=== PATIENT | female | born 1965 | race Caucasian/White ===

== ENCOUNTER 2017-06-27 23:48 | Emergency (ER) | payer OTHER ==
[~2017-06-27] VITALS: Ht 157.5 cm; Wt 70.3 kg
[~2017-06-27 23:48] MED LIST: ALBU90OI61 INH; ALPR.5 PO; ASPI325 PO; ASPI81CH PO; BUDE10.22; BUDE6HFA INH; CALC1.25T PO; CETI5 PO; CITA20 PO; CLOP75 PO; CO Q PO; COMBIVENT RESPIM4 GM INH; Crestor20 MG PO; ERGO50000 PO; ISOMON20; ISOSORBIDE MONONITRATE 30 MG; LISI5 PO; LOVA40 PO; MAGOXI400 PO; METO25 PO; Norco 5-325 Ta1 EACH PO; Omeprazole20 M1; TOBR.3OPO LEFTEYE; TRAM50 PO; TRAZ50 PO; Zofran Odt4 MG SL
[2017-06-28] MEDS ORDERED: Mobic7.5 MG PO (00:15)
[2017-06-28 01:05] LABS: BASOPHILS ABSOLUTE AUTO 0.05 K/mm3 (0.00-0.23); BASOPHILS PERCENT AUTO 1 % (0-2); EOSINOPHILS ABSOLUTE AUTO 0.13 K/mm3 (0.00-0.68); EOSINOPHILS PERCENT AUTO 1 % (0-6); Hematocrit 39.7 % (33.0-51.0); Hemoglobin 12.6 g/dL (11.5-16.0); IMMATURE GRAN ABSOLUTE AUTO 0.03 K/mm3 (0.00-0.10); IMMATURE GRAN PERCENT AUTO 0 % (0-1); LYMPHOCYTES ABSOLUTE AUTO 4.22 K/mm3 (0.84-5.20); LYMPHOCYTES PERCENT AUTO 45 % (21-46); MONOCYTES ABSOLUTE AUTO 0.48 K/mm3 (0.16-1.47); MONOCYTES PERCENT AUTO 5 % (4-13); Mean Corpuscular HGB 29.4 pg (26.0-34.0); Mean Corpuscular HGB Conc 31.7 g/dL (31.5-36.5); Mean Corpuscular Volume 93 fL (80-100); Mean Platelet Volume 9.7 fL (9.1-12.4); NEUTROPHILS ABSOLUTE AUTO 4.47 K/mm3 (1.96-9.15); NEUTROPHILS PERCENT AUTO 48 % (41-73); Platelet Count 210 K/mm3 (150-400); RDW Coefficient Variation 14.7 % (11.7-14.2); RDW Standard Deviation 50.4 fL (35.1-46.3); Red Blood Cell Count 4.29 M/mm3 (3.80-5.20); White Blood Cell Count 9.38 K/mm3 (4.00-11.30)
[2017-06-28 01:20] LABS: Alanine Aminotransfer (ALT/SGP 26 U/L (12-78); Albumin, Blood 3.3 g/dL (3.4-5.0); Albumin/Globulin Ratio 0.9 (0.8-1.8); Alk Phos 55 U/L (50-136); Anion Gap 9 mmol/L (6-16); Aspartate Aminotrans (AST/SGOT 22 U/L (12-37); Bilirubin, Total 0.1 mg/dL (0.1-1.0); Blood Urea Nitrogen 19 mg/dL (8-24); Bun/Creatinine Ratio 27.3 (12.0-20.0); CO2, Blood 26 mmol/L (21-32); Calcium, Blood 8.5 mg/dL (8.5-10.1); Chloride, Blood 107 mmol/L (98-108); Globulin, Blood 3.7 g/dL (2.2-4.0); Glomerular Filtration Rate >60 (60-); Glucose, Blood 80 mg/dL (70-99); Potassium, Blood 3.8 mmol/L (3.5-5.5); Sodium, Blood 142 mmol/L (136-145); Troponin I <0.015 ng/mL (0.000-0.040)
== END 2017-06-28 05:30 | disposition home or self-care (01) ==
LOC: ER 23:48
PROVIDERS: Emergency Medicine
DX: R07.89 Other chest pain (principal); F41.9 Anxiety disorder, unspecified; J44.9 Chronic obstructive pulmonary disease, unspecified; I25.10 Atherosclerotic heart disease of native coronary artery without angina pectoris; I25.2 Old myocardial infarction; Z88.1 Allergy status to other antibiotic agents; Z79.899 Other long term (current) drug therapy; Z79.82 Long term (current) use of aspirin; Z95.5 Presence of coronary angioplasty implant and graft; Z90.710 Acquired absence of both cervix and uterus; Z87.891 Personal history of nicotine dependence; Z90.49 Acquired absence of other specified parts of digestive tract
CPT/HCPCS: 36415; 71046; 80053; 84484; 85025; 93005; 93010; 99283

== ENCOUNTER 2017-07-26 07:07 | Day surgery (SDC) | payer OTHER ==
[~2017-07-26] VITALS: Ht 157.5 cm; Wt 73.3 kg
[~2017-07-26 07:07] MED LIST changes: +Mobic7.5 MG PO
[2017-07-26] MEDS ORDERED: LOSA50 PO (07:35)
== END 2017-07-26 09:10 | disposition home or self-care (01) ==
LOC: ORSCSDS 07:07
PROVIDERS: Surgery
PROC: 0DJD8ZZ Inspection of Lower Intestinal Tract, Via Natural or Artificial Opening Endoscopic (ICD-10-PCS; principal; 2017-07-26 08:15)
DX: Z12.11 Encounter for screening for malignant neoplasm of colon (principal); F17.210 Nicotine dependence, cigarettes, uncomplicated; J44.9 Chronic obstructive pulmonary disease, unspecified; Z79.82 Long term (current) use of aspirin; Z79.899 Other long term (current) drug therapy
CPT/HCPCS: J0330; J1980; J2405; J7120

== ENCOUNTER 2018-06-26 13:48 | Inpatient (IN) | payer OTHER, MEDICARE ==
[~2018-06-26] VITALS: Ht 160 cm; Wt 83.2 kg
[~2018-06-26 13:48] MED LIST changes: -CITA20 PO; +Citalopram HBr40 MG PO; +LOSA50 PO
[2018-06-26 14:43] LABS: BASOPHILS ABSOLUTE AUTO 0.05 K/mm3 (0.00-0.23); BASOPHILS PERCENT AUTO 1 % (0-2); EOSINOPHILS ABSOLUTE AUTO 0.07 K/mm3 (0.00-0.68); EOSINOPHILS PERCENT AUTO 1 % (0-6); Hematocrit 46.3 % (33.0-51.0); Hemoglobin 15.1 g/dL (11.5-16.0); IMMATURE GRAN ABSOLUTE AUTO 0.03 K/mm3 (0.00-0.10); IMMATURE GRAN PERCENT AUTO 0 % (0-1); LYMPHOCYTES ABSOLUTE AUTO 2.97 K/mm3 (0.84-5.20); LYMPHOCYTES PERCENT AUTO 39 % (21-46); MONOCYTES ABSOLUTE AUTO 0.39 K/mm3 (0.16-1.47); MONOCYTES PERCENT AUTO 5 % (4-13); Mean Corpuscular HGB 29.5 pg (26.0-34.0); Mean Corpuscular HGB Conc 32.6 g/dL (31.5-36.5); Mean Corpuscular Volume 91 fL (80-100); Mean Platelet Volume 9.4 fL (9.1-12.4); NEUTROPHILS ABSOLUTE AUTO 4.03 K/mm3 (1.96-9.15); NEUTROPHILS PERCENT AUTO 53 % (41-73); Platelet Count 256 K/mm3 (150-400); RDW Coefficient Variation 13.7 % (11.7-14.2); RDW Standard Deviation 45.9 fL (35.1-46.3); Red Blood Cell Count 5.11 M/mm3 (3.80-5.20); White Blood Cell Count 7.54 K/mm3 (4.00-11.30)
[2018-06-26 15:07] LABS: Alanine Aminotransfer (ALT/SGP 19 U/L (12-78); Albumin, Blood 4.1 g/dL (3.4-5.0); Alk Phos 76 U/L (50-136); Anion Gap 7 mmol/L (6-16); Aspartate Aminotrans (AST/SGOT 16 U/L (12-37); Bilirubin, Total 0.4 mg/dL (0.1-1.0); Blood Urea Nitrogen 11 mg/dL (8-24); Bun/Creatinine Ratio 14.2 (12.0-20.0); CO2, Blood 26 mmol/L (21-32); Chloride, Blood 109 mmol/L (98-108); Creatinine, Blood 0.77 mg/dL (0.40-1.00); Globulin, Blood 4.1 g/dL (2.2-4.0); Glomerular Filtration Rate >60 (60-); Glucose, Blood 84 mg/dL (70-99); Potassium, Blood 4.2 mmol/L (3.5-5.5); Sodium, Blood 142 mmol/L (136-145); Total Protein, Blood 8.2 g/dL (6.4-8.2); Troponin I <0.015 ng/mL (0.000-0.040)
[2018-06-26 17:42] LABS: Prothrombin Time Results 10.6 Sec (9.7-11.5)
[2018-06-26] MEDS ORDERED: ALBU90OI INH (17:56)
[2018-06-26] MEDS ORDERED: Estrace Vagin42.5 GM VAG (18:43)
[2018-06-26] MEDS ORDERED: COMBIVENT RESPIM4 GM INH (18:48)
[2018-06-27 05:15] LABS: CHOL/HDL RATIO 3.5; Cholesterol 168 mg/dL (50-200); HDL Cholesterol 48 mg/dL (>39); LDL/HDL RATIO 2.1; Low Density Lipoprotein Chol 100 mg/dL (0-110); Triglycerides 102 mg/dL (30-160); Very Low Density Lipoprot Chol 20 mg/dL (6-32)
--- NOTE | 2018-06-27 06:28 | NUR ---
SHIFT SUMMARY: PT NEW ED ADMIT TO FLOOR THIS SHIFT. PT IS A&O X 4, INDEPENDENT IN ROOM. NO CHEST PAIN SINCE ARRIVING TO FLOOR. TELE IN PLACE; NSR @ 88 BPM. LS CLEAR, RESP E/U ON RA. NEG TROPONINS. CHEST X RAY WNL. PT HAS HX OF STEMI IN 2016, ANXIETY, DEPRESSION, AND COPD. TRAMADOL ADMINISTERED 1X FOR NECK/BACK PAIN. WILL CONT TO MONITOR AND PROVIDE CARE UNTIL PRESUMED BY ONCOMING RN.
--- NOTE | 2018-06-27 07:20 | NUR ---
CHEST PAIN PT REPORTING CHEST PAIN 3/10, STATES IT IS "DISCOMFORT" AT THIS POINT AND WILL WAIT TO SEE IF IT RESOLVES. VS TAKEN, PT IS RESTING AND WILL CALL IS CP WORSENS.
--- NOTE | 2018-06-27 17:25 | NUR ---
SHIFT SUMMARY PT HAS HAD NO ACUTE CHANGES THIS SHIFT, PT REPORTED CP THIS AM (07/23), WAS REPORTED TO DR KANG. PT IS BEDRESTING AT THIS TIME W/VISITOR AT BEDSIDE, WILL CONT TO MONITOR UNTIL REPORT GIVEN TO KEVON RN.
[2018-06-28 04:59] LABS: BASOPHILS ABSOLUTE AUTO 0.05 K/mm3 (0.00-0.23); BASOPHILS PERCENT AUTO 1 % (0-2); EOSINOPHILS PERCENT AUTO 2 % (0-6); Hematocrit 39.9 % (33.0-51.0); Hemoglobin 12.5 g/dL (11.5-16.0); IMMATURE GRAN ABSOLUTE AUTO 0.02 K/mm3 (0.00-0.10); IMMATURE GRAN PERCENT AUTO 0 % (0-1); LYMPHOCYTES ABSOLUTE AUTO 3.43 K/mm3 (0.84-5.20); LYMPHOCYTES PERCENT AUTO 54 % (21-46); MONOCYTES ABSOLUTE AUTO 0.32 K/mm3 (0.16-1.47); MONOCYTES PERCENT AUTO 5 % (4-13); Mean Corpuscular HGB 29.3 pg (26.0-34.0); Mean Corpuscular HGB Conc 31.3 g/dL (31.5-36.5); Mean Platelet Volume 9.2 fL (9.1-12.4); NEUTROPHILS ABSOLUTE AUTO 2.48 K/mm3 (1.96-9.15); NEUTROPHILS PERCENT AUTO 39 % (41-73); Platelet Count 219 K/mm3 (150-400); RDW Coefficient Variation 13.8 % (11.7-14.2); RDW Standard Deviation 47.3 fL (35.1-46.3); Red Blood Cell Count 4.26 M/mm3 (3.80-5.20)
[2018-06-28 05:04] LABS: Mean Corpuscular Volume 94 fL (80-100)
[2018-06-28 05:17] LABS: Very Low Density Lipoprot Chol 15 mg/dL (6-32)
[2018-06-28 05:18] LABS: Anion Gap 5 mmol/L (6-16); Blood Urea Nitrogen 17 mg/dL (8-24); CHOL/HDL RATIO 3.3; CO2, Blood 29 mmol/L (21-32); Calcium, Blood 8.2 mg/dL (8.5-10.1); Chloride, Blood 107 mmol/L (98-108); Cholesterol 159 mg/dL (50-200); Creatinine, Blood 0.77 mg/dL (0.40-1.00); Glomerular Filtration Rate >60 (60-); Glucose, Blood 91 mg/dL (70-99); HDL Cholesterol 48 mg/dL (>39); Low Density Lipoprotein Chol 96 mg/dL (0-110); Potassium, Blood 4.1 mmol/L (3.5-5.5); Sodium, Blood 141 mmol/L (136-145); Triglycerides 76 mg/dL (30-160)
--- NOTE | 2018-06-28 06:48 | NUR ---
SHIFT SUMMARY PT IS A 52 Y/O FEMALE, ADMITTED FOR CHEST PAIN. SHE IS A&O X 4, AND INDEPENDENT IN THE ROOM. SHE HAS DENIED ANY CHEST PAIN DURING THE NIGHT, WELL ANY SOB OR NAUSEA. PT WAS MADE NPO AT MIDNIGHT IN PREP FOR A STRESS TEST THIS AM. VITAL SIGNS REMAINED STABLE. PT SLEPT WELL THROUGH THE NIGHT. NO OTHER ACUTE CHANGES IN PT CONDITION NOTED. WILL CONTINUE TO MONITOR AND TREAT PER EMAR.
--- NOTE | 2018-06-28 17:29 | NUR ---
SHIFT SUMMARY PT HAS HAD NO ACUTE CHANGES THIS SHIFT, NO CP, PT WILL BE NPO AT MIDNIGHT FOR ANGIO 06/29, PT IS AWARE. PT IS BEDRESTING AT THIS TIME, WILL CONT TO MONITOR UNTIL REPORT GIVEN TO NOC RN.
--- NOTE | 2018-06-29 06:28 | NUR ---
SHIFT SUMMARY: PT A&O X 4, INDEPEDENT. GOING OUTSIDE TO SMOKER REGARDLESS OF SMOKING CESSATION EDUCATION AND OFFERING OF NICOTINE PATCH. PT HAS NOT HAD ANY CHEST PAIN THIS SHIFT. NPO AT MIDNIGHT FOR IMPENDING ANGIO TODAY. PT FAILED STRESS TEST PERFORMED ON 06/28. TELE IN PLACE; NSR @ 76 BPM PER STORE CLERK CHECKER. NO OTHER CHANGES TO REPORT. WILL CONT TO MONITOR AND PROVIDE CARE UNTIL PRESUMED BY ONCOMING RN.
--- NOTE | 2018-06-29 11:36 | NUR ---
PT TO [facility] FITTER FOR ANGIO
--- NOTE | 2018-06-29 18:23 | NUR ---
NURSING PCU TRANSFER SUMMARY: Assumed care of pt at approx 1410. Arrived from HC via bed accompanied by HC staff x2. VSS, no c/o CP/pressure. R radial site w/TR band and wrist board in place. Site stable w/no bleed or hematoma noted. At approx 1700, pt began to c/o 6/10 epigastric/midsternal CP/burning. VS completed, noted hypertension of 210/129, f/u BP of 192/116. Software Engineering Analyst notified, new d/o received for nitro and hep gtt's, pt changed to ICU status. ICU bed assignment received, telephone report provided to accepting RN. Pt xferred to ICU via bed at approx 1750, no s/s of increased distress at that time. Pt and accepting RN denied any questions, xfer of care completed.
--- NOTE | 2018-06-29 19:15 | NUR ---
ASSUMING CARE OF PT AT THIS TIME. PT REPORT RECEIVED AT BEDSIDE WITH OFFGOING NURSE, DANIELLE ALEXANDRE. PT LAYING IN BED, AWAKE UPON ENTERING THE ROOM. PT HYPERTENSTIVE - WILL TITRATE NITRO DRIP TO EFFECT. OTHERWISE, VS STABLE - SEE VS FS. PT DOES NOT APPEAR TO BE IN DISTRESS AT THIS TIME. WILL REVIEW PLAN OF CARE.
--- NOTE | 2018-06-29 19:20 | NUR ---
Patient transferred from PCU 12 and went to use bathroom prior to gett ing in ICU bed 1. Recieved brief report from Keila ALEXANDRE. Patient on RA and systolic 180 and HR 50's. Started Heparin at 15 units/kg/hr with adjusted weight of 65Kg. Also started Nitro gtt at 5mcg which has been increased to 15mcg for systolic 170 and slow decreaseing. Took patient for CTA and when got back did EKG. Started 18ga IV RFA and heparin infusing and she has 20ga IV LFA infusing Nitro gtt. Deflated TR band over 30 minutes and TR Band still in place and Raquel RN will remove.. Gave report to Raquel ALEXANDRE.
--- NOTE | 2018-06-29 19:30 | NUR ---
ASSESSMENT PT CALM, QUIET, COOPERATIVE, RESPONDS TO VERBAL STIMULI, SPONT OPENS EYES, A&O X4, TALKS AND ANSWERS QUESTIONS APPROPRIATELY. SENSATION INTACT. DENIES N/T. PT AVENDANO. NO WEAKNESS NOTED. PT TURNS SELF IN BED. 1P SBA TO ASSIST WITH LINES/CORDS/TUBES TO AMBULATE PT. PT C/O 4/10 PAIN IN "RIBS" AND "UPPER CHEST". WILL ADMINISTER SCHEDULED ULTRAM PER PHYSICIAN'S ORDER. LUNGS CLEAR. PT ON RA. OXY SAT >95%. RR 14. DENIES SOB. NO COUGHING. AFEBRILE. SB TO NSR. HR 50'S TO 60'S. BP STABLE WHILE ON NITRO DRIP 15 MCG/MIN. NITRO DRIP - WILL TITRATE TO EFFECT. HEPARIN DRIP AT 15 UNITS/KG/HR AT A DOSING WEIGHT 65 KG (19.5 ML/HR). VERIFIED NITRO DRIP AND HEPARIN DRIP WITH OFFGOING NURSE, DANIELLE ALEXANDRE. TR BAND TO R RADIAL WITH ARMBOARD IN PLACE. PER REPORT - TR BAND IS COMPLETELY DEFLATED. R RADIAL SITE - SMALL AMOUNTS OF DRY SEROSANGEOUS FLUID, NO HEMATOMA, NO TENDERNESS, NO BLEEDING, NO BRUISING, NO REDNESS. ACTIVE BT X4 QUADRANTS. ABD SOFT, NONTENDER, MILD DIST (PT STATES DIST IS NORMAL). NO N/V. NO BM AT THIS TIME. PT HAS BEDSIDE COMMODE PRIVELEGES WITH AMBULATION ASSISTANCE. CLEAR, YELLOW URINE NOTED. PIV X2.
--- NOTE | 2018-06-29 21:15 | NUR ---
TR BAND / DR. POLANCO TR BAND TO RADIAL. R RADIAL SITE - SMALL AMOUNTS OF DRY SEROSANGEOUS FLUID, NO HEMATOMA, NO TENDERNESS, NO BLEDING, NO BRUISING, NO REDNESS. TR BAND REMOVED. CLEANED R RADIAL SITE WITH CHLORHEXIDIE. TRANSPARENT DRESSING PLACED. DRESSING C/D/I. R ARMBOARD REMAINS IN PLACED. CALLED DR. HERNANDEZ REGARDING METOPROLOL ORDER. NITRO DRIP 15 MCG/MIN. HR 50'S. BP STABLE WHILE ON NITRO DRIP - SEE VS FS. INFORMED DR. POLANCO OF PT'S STATUS AND VS. DR. POLANCO INSTRUCTED TO ADMINISTER METOPROLOL AT THIS TIME.
[2018-06-30 01:14] LABS: BASOPHILS ABSOLUTE AUTO 0.04 K/mm3 (0.00-0.23); BASOPHILS PERCENT AUTO 1 % (0-2); EOSINOPHILS PERCENT AUTO 1 % (0-6); Hematocrit 36.2 % (33.0-51.0); Hemoglobin 11.7 g/dL (11.5-16.0); IMMATURE GRAN ABSOLUTE AUTO 0.02 K/mm3 (0.00-0.10); IMMATURE GRAN PERCENT AUTO 0 % (0-1); LYMPHOCYTES ABSOLUTE AUTO 1.94 K/mm3 (0.84-5.20); LYMPHOCYTES PERCENT AUTO 23 % (21-46); MONOCYTES ABSOLUTE AUTO 0.36 K/mm3 (0.16-1.47); MONOCYTES PERCENT AUTO 4 % (4-13); Mean Corpuscular HGB 29.5 pg (26.0-34.0); Mean Corpuscular HGB Conc 32.3 g/dL (31.5-36.5); Mean Platelet Volume 9.1 fL (9.1-12.4); NEUTROPHILS PERCENT AUTO 71 % (41-73); Platelet Count 216 K/mm3 (150-400); RDW Coefficient Variation 13.8 % (11.7-14.2); Red Blood Cell Count 3.97 M/mm3 (3.80-5.20); White Blood Cell Count 8.36 K/mm3 (4.00-11.30)
[2018-06-30 01:17] LABS: Mean Corpuscular Volume 91 fL (80-100)
[2018-06-30 01:37] LABS: Albumin, Blood 3.2 g/dL (3.4-5.0); Anion Gap 8 mmol/L (6-16); Blood Urea Nitrogen 12 mg/dL (8-24); Bun/Creatinine Ratio 16.9 (12.0-20.0); CO2, Blood 25 mmol/L (21-32); Chloride, Blood 109 mmol/L (98-108); Creatinine, Blood 0.71 mg/dL (0.40-1.00); Glomerular Filtration Rate >60 (60-); Glucose, Blood 122 mg/dL (70-99); Phosphorus, Blood 3.4 mg/dL (2.5-4.9); Potassium, Blood 3.8 mmol/L (3.5-5.5); Sodium, Blood 142 mmol/L (136-145)
--- NOTE | 2018-06-30 01:40 | NUR ---
DR. GARLAND PT POST CARDIAC CATH. HEPARIN DRIP PER PHARMACY. DR. VIRK INFORMED OF CRITICAL LAB TROPONIN. NO NEW ORDERS AT THIS TIME.
--- NOTE | 2018-06-30 02:01 | NUR ---
HEPARIN DRIP INFORMED JOSE, PHARMACIST OF [facility] VAL[facility]. JOSE PLANNING TO REVIEW [facility] TO ADJUST HEPARIN DRIP.
--- NOTE | 2018-06-30 04:47 | NUR ---
SHIFT ASSESSMENT NO ACUTE CHANGES NOTED T/O SHIFT. PT SLEPT ON/OFF T/O SHIFT. PT CALM, QUIET, COOPERATIVE, RESPONDS TO VERBAL STIMULI, SPONT OPENS EYES, A&O X4, TALKS AND ANSWERS QUESTIONS APPROPRIATELY. SENSATION INTACT. DENIES N/T. PT AVENDANO. NO WEAKNESS NOTED. PT TURNS SELF IN BED. 1P SBA TO ASSIST WITH AMBULATION TO ASSIST WITH LINES/CORDS/UTBES. PT STATES PAIN IS TOLERABLE AFTER ADMINISTERING SCHEDULED ULTRAM. PT CONT TO DENY CP. LUNGS CLEAR. PT ON RA. OXY SAT >90%. RR 11 TO 20'S. DENIES SOB. NO COUGHING. AFEBRILE. SB TO NSR. HR 50'S TO 60'S. BP STABLE THIS AM - SEE VS FS. TITRATED NITRO DRIP TO STANDBY. PT CONT TO DENY CP. HEPARIN DRIP AT 16 UNITS/KG/HR AT A DOSING WEIGHT 65 KG (19.5 ML/HR). VERIFIED HEPARIN DRIP WITH BETTIE METCALF. R RADIAL SITE - SMALL AMOUNTS OF DRY SEROSANGEOUS FLUID, NO HEMATOMA, NO TENDERNESS, NO ACTIVE BLEEDING, NO BRUISING, NO REDNESS, DRESSING C/I, R ARMBOARD IN PLACE. EDUCATE PT ABOUT POST CATH PRECAUTIONS. ACTIVE BT X4 QUADRANTS. ABD SOFT, NONTENDER, MILD DIST (PT STATES DIST IS NORMAL). NO N/V. NO BM. PT C/O "REFLEX" THAT RESOLVED AFTER HAVING SNACK. PT HAS BEDSIDE COMMODE PRIVELEGES WITH ASSISTANCE. CLEAR, YELLOW URINE NOTED. PIV X2. WILL CONT TO MONITOR PT AND WILL PROVIDE BEDSIDE REPORT TO ONCOMING NURSE THIS AM.
--- NOTE | 2018-06-30 07:03 | NUR ---
ASSUMED CARE REPORT FROM BETTIE JARVIS. PATIENT A&O DENIES CHEST PAIN. SMALL HEMATOMA AT RADIAL SITE. HEPARIN GTT CONTINUES WITH NEXT PTT AT 0800. ASSISTED PATIENT TO TOILET
--- NOTE | 2018-06-30 08:44 | NUR ---
MD VISIT DR. RODRIGUEZ IN. PCU STATUS. CONTINUE HEPARIN GTT
--- NOTE | 2018-06-30 09:08 | NUR ---
MD VISIT DR. TRUONG IN. WILL DISCHARGE HOME IF TROPONIN IS TRENDING DOWN.
[2018-06-30 10:09] LABS: C-Reactive Protein, High Sens. 2.97 mg/L (0.000-3.000)
[2018-06-30 10:21] LABS: Troponin I 9.49 ng/mL (0.000-0.040)
--- NOTE | 2018-06-30 10:37 | NUR ---
MD VISIT DR. TRUONG IN. GAINED WRITTEN CONSENT FOR ANOTHER ANGIO FROM PATIENT. ANTICIPATES AROUND 1PM PATIENT HAD BREAKFAST
--- NOTE | 2018-06-30 13:25 | NUR ---
TO [facility] WITH BETTIE FRANK
--- NOTE | 2018-06-30 15:08 | NUR ---
1450-PT BACK FROM [facility]. ASSUMED CARE OF PT FROM BETTIE NIELSEN. PT IS SLIGHTLY DROWSY BUT ORIENTED X 4. FOLLOWING COMMANDS. PT'S R RADIAL SITE HAS BEEN REACCESSED. PT COMPLAINTS OF SLIGHT TIGHTNESS AND COMPLAINTS OF TENDERNESS ABOVE THE ACCESS SITE WHEN PALPATED. DENIES TINGLING AND NUMBNESS TO THE R HAND/FINGERS. R RADIAL ACCESS SITE HAS TR BAND INFLATED 11CC AIR. NO BRUISING NOTED. PT IS BRADYCARDIAC. PULSES ARE PALPABLE. AFEBRILE. PT STATES THAT SLIGHT CHEST PAIN IS PRESENT BUT NOT BAD YESTERDAY. SHE STATES CHEST PAIN HAS IMPROVED AND EASING GRADUALLY.
--- NOTE | 2018-06-30 15:20 | NUR ---
DR. TRUONG WAS CALLED FOR ORDER CLARIFICATION.
[2018-06-30 15:30] LABS: BASOPHILS ABSOLUTE AUTO 0.03 K/mm3 (0.00-0.23); BASOPHILS PERCENT AUTO 1 % (0-2); EOSINOPHILS ABSOLUTE AUTO 0.09 K/mm3 (0.00-0.68); EOSINOPHILS PERCENT AUTO 2 % (0-6); Hematocrit 37.5 % (33.0-51.0); Hemoglobin 12.1 g/dL (11.5-16.0); IMMATURE GRAN ABSOLUTE AUTO 0.02 K/mm3 (0.00-0.10); IMMATURE GRAN PERCENT AUTO 0 % (0-1); LYMPHOCYTES ABSOLUTE AUTO 1.64 K/mm3 (0.84-5.20); LYMPHOCYTES PERCENT AUTO 27 % (21-46); MONOCYTES ABSOLUTE AUTO 0.37 K/mm3 (0.16-1.47); MONOCYTES PERCENT AUTO 6 % (4-13); Mean Corpuscular HGB 29.6 pg (26.0-34.0); Mean Corpuscular HGB Conc 32.3 g/dL (31.5-36.5); Mean Corpuscular Volume 92 fL (80-100); Mean Platelet Volume 9.5 fL (9.1-12.4); NEUTROPHILS ABSOLUTE AUTO 3.94 K/mm3 (1.96-9.15); NEUTROPHILS PERCENT AUTO 65 % (41-73); Platelet Count 194 K/mm3 (150-400); RDW Standard Deviation 47.1 fL (35.1-46.3); Red Blood Cell Count 4.09 M/mm3 (3.80-5.20); White Blood Cell Count 6.09 K/mm3 (4.00-11.30)
--- NOTE | 2018-06-30 19:15 | NUR ---
ASSUMED CARE OF PT. REPORT RECEIVED FROM BETTIE CORREA. PT ALERT AND ORIENTED SITTING UP IN BED WATCHING TV. PT HAS BEEN ABLE TO TOLERATE MEALS WITH NO C/O N/V. PT HAS SALINE LOCKED 18 G IV R FA AND 20 G L FA. PT ABLE TO INDEPENDENTLY AMBULATE WITH NO DIZZINESS. TR BAND AND ARM BOARD IN PLACE. 3 CC'S OF AIR REMAINING. SLIGHT HEMATOMA WITH TENDERNESS ABOVE RECENT INSERTION SITE (SEE CATH MANAGEMENT NOTES) FROM PREVIOUS CATH (06/29/18). PT DENIES NUMBNESS OR TINGLING. FINGERS ARE WARM AND PINK. VSS. SEE FULL SHIFT ASSESSMENT.
--- NOTE | 2018-06-30 19:26 | NUR ---
SHIFT SUMMARY: PT IS ALERT AND ORIENTED. DENIES CHEST PAIN AT THIS TIME. PT STILL HAS TR BAND THAT IS STILL INFLATED WITH 3CC AIR. R RADIAL WRIST ACCESS SITE IS STABLE. SLIGHT BRUISING NOTED.
[2018-07-01 04:04] LABS: Albumin, Blood 3.3 g/dL (3.4-5.0); Anion Gap 8 mmol/L (6-16); Blood Urea Nitrogen 12 mg/dL (8-24); Bun/Creatinine Ratio 15.7 (12.0-20.0); CO2, Blood 28 mmol/L (21-32); Calcium, Blood 8.2 mg/dL (8.5-10.1); Chloride, Blood 105 mmol/L (98-108); Creatinine, Blood 0.77 mg/dL (0.40-1.00); Glomerular Filtration Rate >60 (60-); Glucose, Blood 83 mg/dL (70-99); Phosphorus, Blood 3.7 mg/dL (2.5-4.9); Potassium, Blood 4.4 mmol/L (3.5-5.5); Sodium, Blood 141 mmol/L (136-145)
--- NOTE | 2018-07-01 05:49 | NUR ---
SHIFT SUMMARY NO ACUTE CHANGES OVERNIGHT. PT SLEPT WELL AND HAS BEEN INDEPENDENTLY AMBULATING AROUND ROOM. PT CONTINUES TO DENY CHEST PAIN OR NAUSEA. TR BAND REMOVED AT 2230, ARM BOARD REMAINS IN PLACE. VSS. WILL REPORT TO DAYSHIFT NURSE.
--- NOTE | 2018-07-01 06:58 | NUR ---
ASSUMED CARE OF PT. PT IS ALERT AND ORIENTED. DENIES CHEST PAIN AT THIS TIME. PT IS FOLLOWING COMMANDS. R RADIAL ACCESS SITE IS STABLE. SOME TENDERNESS EXPRESSED BY PT BUT HAS IMPROVED FROM YESTERDAY. AFEBRILE.
--- NOTE | 2018-07-01 10:06 | NUR ---
Pt seen by Dr. Rivera. Possible going home today.
--- NOTE | 2018-07-01 11:24 | NUR ---
SEEN BY DR. KANG. UPDATED HIM OF PT'S STATUS. INFORMED HIM REGARDING TROPONIN RESULTS WHICH IS TRENDING DOWN.
[2018-07-01] MEDS ORDERED: FAMO20 PO (11:58)
[2018-07-01] MEDS ORDERED: Acetaminophen650 M1 PO (11:58)
[2018-07-01] MEDS ORDERED: NICO21TP TOP (12:01)
[2018-07-01] MEDS ORDERED: NITR.4SL SL (12:04)
[2018-07-01] MEDS ORDERED: BRILINTA90 MG PO (12:05)
--- NOTE | 2018-07-01 13:16 | NUR ---
PT WAS DISCHARGED AT 1300. DISCHARGE INSTRUCTIONS WERE TO PATIENT.
== END 2018-07-01 13:00 | disposition home or self-care (01) | DRG 246 ==
LOC: ER 13:48 → ICUE 13:49 → MEDS 13:49 → PCU 06-29 12:58 → ICUE 06-29 17:50
PROVIDERS: Emergency Medicine; Family Medicine; Physician Assistant; ADMIT Internal Medicine
PROC: 4A023N7 Measurement of Cardiac Sampling and Pressure, Left Heart, Percutaneous Approach (ICD-10-PCS; principal; 2018-06-30)
PROC: 027034Z Dilation of Coronary Artery, One Artery with Drug-eluting Intraluminal Device, Percutaneous Approach (ICD-10-PCS; 2018-06-30)
PROC: B211YZZ Fluoroscopy of Multiple Coronary Arteries using Other Contrast (ICD-10-PCS; 2018-06-30)
PROC: 02723ZZ Dilation of Coronary Artery, Three Arteries, Percutaneous Approach (ICD-10-PCS; 2018-06-30)
DX: I25.10 Atherosclerotic heart disease of native coronary artery without angina pectoris (principal); I21.4 Non-ST elevation (NSTEMI) myocardial infarction; R07.9 Chest pain, unspecified; J44.9 Chronic obstructive pulmonary disease, unspecified; E78.5 Hyperlipidemia, unspecified; I10 Essential (primary) hypertension; F17.210 Nicotine dependence, cigarettes, uncomplicated
CPT/HCPCS: 36415; 71046; 71275; 74175; 78452; 80048; 80053; 80061; 80069; 83880; 84484; 85025; 85027; 85347; 85610; 85651; 85730; 86141; 92920; 92921; 93005; 93010; 93017; 93306; 93454; 93458; 93571; 94640; 94760; 96361; 96372; 96374; 96375; 99152; 99153; 99285-25; A9500; C1725; C1769; C1874; C1887; C1894; C9600; G0378; J0706; J1644; J1650; J2250; J2785; J3010; J7030; J7040; Q9967

== ENCOUNTER 2018-10-16 09:41 | Emergency (ER) | payer OTHER, MEDICARE ==
[~2018-10-16] VITALS: Ht 160 cm; Wt 79.8 kg
[~2018-10-16 09:41] MED LIST changes: +ALBU90OI INH; +Acetaminophen650 M1 PO; +BRILINTA90 MG PO; +Estrace Vagin42.5 GM VAG; +FAMO20 PO; +NICO21TP TOP; +NITR.4SL SL
[2018-10-16] MEDS ORDERED: VALACYCLOVIR1000 MG PO (10:20)
[2018-10-16] MEDS ORDERED: GABA300 PO (10:20)
[2018-10-16 10:30] LABS: BASOPHILS ABSOLUTE AUTO 0.03 K/mm3 (0.00-0.23); BASOPHILS PERCENT AUTO 1 % (0-2); EOSINOPHILS ABSOLUTE AUTO 0.03 K/mm3 (0.00-0.68); EOSINOPHILS PERCENT AUTO 1 % (0-6); Hematocrit 39.3 % (33.0-51.0); Hemoglobin 12.7 g/dL (11.5-16.0); IMMATURE GRAN ABSOLUTE AUTO 0.02 K/mm3 (0.00-0.10); IMMATURE GRAN PERCENT AUTO 0 % (0-1); LYMPHOCYTES ABSOLUTE AUTO 1.48 K/mm3 (0.84-5.20); LYMPHOCYTES PERCENT AUTO 24 % (21-46); MONOCYTES ABSOLUTE AUTO 0.27 K/mm3 (0.16-1.47); MONOCYTES PERCENT AUTO 4 % (4-13); Mean Corpuscular HGB 30.7 pg (26.0-34.0); Mean Corpuscular HGB Conc 32.3 g/dL (31.5-36.5); Mean Corpuscular Volume 95 fL (80-100); Mean Platelet Volume 9.4 fL (9.1-12.4); NEUTROPHILS ABSOLUTE AUTO 4.48 K/mm3 (1.96-9.15); NEUTROPHILS PERCENT AUTO 71 % (41-73); Platelet Count 250 K/mm3 (150-400); RDW Coefficient Variation 15.1 % (11.7-14.2); RDW Standard Deviation 52.9 fL (35.1-46.3); Red Blood Cell Count 4.14 M/mm3 (3.80-5.20); White Blood Cell Count 6.31 K/mm3 (4.00-11.30)
[2018-10-16 10:48] LABS: Alanine Aminotransfer (ALT/SGP 30 U/L (12-78); Albumin, Blood 3.7 g/dL (3.4-5.0); Alk Phos 65 U/L (50-136); Anion Gap 6 mmol/L (6-16); Aspartate Aminotrans (AST/SGOT 24 U/L (12-37); Bilirubin, Total 0.6 mg/dL (0.1-1.0); Blood Urea Nitrogen 11 mg/dL (8-24); CO2, Blood 27 mmol/L (21-32); Calcium, Blood 8.8 mg/dL (8.5-10.1); Chloride, Blood 109 mmol/L (98-108); Creatinine, Blood 0.69 mg/dL (0.40-1.00); Globulin, Blood 3.6 g/dL (2.2-4.0); Glomerular Filtration Rate >60 (60-); Glucose, Blood 98 mg/dL (70-99); Sodium, Blood 142 mmol/L (136-145); Total Protein, Blood 7.3 g/dL (6.4-8.2); Troponin I 0.054 ng/mL (0.000-0.040)
[2018-10-16 12:37] LABS: Source, Urine Clean Catch
[2018-10-16 12:40] LABS: Bilirubin, Urine Neg (Neg); Blood, Urine Neg (Neg); Glucose Qualitative, Urine Neg (Neg); Ketones, Urine 1+ (Neg); Leukocyte Esterase, Urine Neg (Neg); Nitrite, Urine Neg (Neg); Protein, Urine Neg (Neg); Specific Gravity, Urine 1.005 (1.003-1.022); Urobilinogen, Urine NORM (Normal)
[2018-10-16 12:46] LABS: Appearance, Urine Clear (Clear); Color, Urine Yellow (P-Yellow)
== END 2018-10-16 13:41 | disposition home or self-care (01) ==
LOC: ER 09:41
PROVIDERS: Emergency Medicine
DX: R53.1 Weakness (principal); Z88.5 Allergy status to narcotic agent; Z88.1 Allergy status to other antibiotic agents; Z79.899 Other long term (current) drug therapy; Z79.82 Long term (current) use of aspirin; F41.9 Anxiety disorder, unspecified; F17.200 Nicotine dependence, unspecified, uncomplicated
CPT/HCPCS: 36415; 71046; 80053; 81003; 83690; 84484; 85025; 93005; 93010; 96374; 99284-25; J1885

== ENCOUNTER 2021-11-16 08:19 | Emergency (ER) | payer MEDICARE, OTHER ==
[~2021-11-16] VITALS: Ht 160 cm; Wt 81.7 kg
[~2021-11-16 08:19] MED LIST changes: +GABA300 PO; +ISODIN10 PO; +VALACYCLOVIR1000 MG PO
[2021-11-16] MEDS ORDERED: KETO10 PO (10:02)
== END 2021-11-16 10:29 | disposition home or self-care (01) ==
LOC: ER 08:19
DX: U07.1 COVID-19 (principal); I25.10 Atherosclerotic heart disease of native coronary artery without angina pectoris; I25.2 Old myocardial infarction; I10 Essential (primary) hypertension; J44.9 Chronic obstructive pulmonary disease, unspecified; E78.5 Hyperlipidemia, unspecified; F17.210 Nicotine dependence, cigarettes, uncomplicated; Z88.5 Allergy status to narcotic agent; Z88.1 Allergy status to other antibiotic agents; Z79.899 Other long term (current) drug therapy; Z79.82 Long term (current) use of aspirin
CPT/HCPCS: 99282

== ENCOUNTER → 2022-05-27 | Outpatient (CLI) | payer MEDICARE, OTHER ==
[~2022-05-27] MED LIST changes: +KETO10 PO
[2022-05-27 22:09] LABS: Albumin, Blood 3.6 g/dL (3.4-5.0); Albumin/Globulin Ratio 1.1 (0.8-1.8); Alk Phos 63 U/L (50-136); Anion Gap 4 mmol/L (6-16); Aspartate Aminotrans (AST/SGOT 30 U/L (12-37); Bilirubin, Total 0.5 mg/dL (0.1-1.0); Blood Urea Nitrogen 16 mg/dL (8-24); CHOL/HDL RATIO 3.2; CO2, Blood 28 mmol/L (21-32); Calcium, Blood 8.8 mg/dL (8.5-10.1); Chloride, Blood 108 mmol/L (98-108); Cholesterol 136 mg/dL (50-200); Globulin, Blood 3.4 g/dL (2.2-4.0); Glucose, Blood 100 mg/dL (70-99); HDL Cholesterol 42 mg/dL (>39); LDL/HDL RATIO 1.8; Low Density Lipoprotein Chol 74 mg/dL (0-110); Potassium, Blood 4.3 mmol/L (3.5-5.5); Sodium, Blood 140 mmol/L (136-145); Triglycerides 99 mg/dL (30-160); Very Low Density Lipoprot Chol 19 mg/dL (6-32)
[2022-05-27 22:17] LABS: Alanine Aminotransfer (ALT/SGP 33 U/L (12-78); Bun/Creatinine Ratio 19.8 (12.0-20.0); Creatinine, Blood 0.81 mg/dL (0.40-1.00); Glomerular Filtration Rate 85 (60-)
== END | disposition home or self-care (01) ==
LOC: LAB SHORT 08:20
PROVIDERS: Family Medicine
DX: I10 Essential (primary) hypertension (principal); E78.2 Mixed hyperlipidemia
CPT/HCPCS: 80053; 80061

== ENCOUNTER → 2023-01-25 | Outpatient (CLI) | payer MEDICARE, OTHER ==
[2023-01-25 19:33] LABS: BASOPHILS ABSOLUTE AUTO 0.09 K/mm3 (0.00-0.23); BASOPHILS PERCENT AUTO 1 % (0-2); EOSINOPHILS ABSOLUTE AUTO 0.13 K/mm3 (0.00-0.68); EOSINOPHILS PERCENT AUTO 2 % (0-6); Hematocrit 41.2 % (33.0-51.0); Hemoglobin 13.6 g/dL (11.5-16.0); IMMATURE GRAN PERCENT AUTO 1 % (0-1); LYMPHOCYTES ABSOLUTE AUTO 2.13 K/mm3 (0.84-5.20); LYMPHOCYTES PERCENT AUTO 30 % (21-46); MONOCYTES PERCENT AUTO 6 % (4-13); Mean Corpuscular HGB 29.8 pg (26.0-34.0); Mean Corpuscular Volume 90 fL (80-100); Mean Platelet Volume 9.8 fL (9.1-12.4); NEUTROPHILS PERCENT AUTO 60 % (41-73); Platelet Count 257 K/mm3 (150-400); RDW Coefficient Variation 13.1 % (11.7-14.2); RDW Standard Deviation 43.4 fL (35.1-46.3); Red Blood Cell Count 4.57 M/mm3 (3.80-5.20); White Blood Cell Count 7.05 K/mm3 (4.00-11.30)
[2023-01-25 20:23] LABS: Alanine Aminotransfer (ALT/SGP 42 U/L (12-78); Albumin, Blood 3.7 g/dL (3.4-5.0); Alk Phos 66 U/L (50-136); Anion Gap 4 mmol/L (6-16); Aspartate Aminotrans (AST/SGOT 31 U/L (12-37); Bilirubin, Total 0.4 mg/dL (0.1-1.0); Blood Urea Nitrogen 19 mg/dL (8-24); Bun/Creatinine Ratio 26.4 (12.0-20.0); CHOL/HDL RATIO 3.7; CO2, Blood 27 mmol/L (21-32); Calcium, Blood 8.8 mg/dL (8.5-10.1); Chloride, Blood 106 mmol/L (98-108); Cholesterol 158 mg/dL (50-200); Creatinine, Blood 0.72 mg/dL (0.40-1.00); Globulin, Blood 3.7 g/dL (2.2-4.0); Glomerular Filtration Rate 97 (60-); Glucose, Blood 98 mg/dL (70-99); HDL Cholesterol 43 mg/dL (>39); LDL/HDL RATIO 2.2; Low Density Lipoprotein Chol 94 mg/dL (0-110); Potassium, Blood 4.1 mmol/L (3.5-5.5); Sodium, Blood 137 mmol/L (136-145); Total Protein, Blood 7.4 g/dL (6.4-8.2); Triglycerides 105 mg/dL (30-160); Very Low Density Lipoprot Chol 21 mg/dL (6-32)
== END | disposition home or self-care (01) ==
LOC: LAB 10:40 → LAB SHORT 10:40
PROVIDERS: Family Medicine
DX: I12.9 Hypertensive chronic kidney disease with stage 1 through stage 4 chronic kidney disease, or unspecified chronic kidney disease (principal); I25.2 Old myocardial infarction; F41.8 Other specified anxiety disorders; I21.9 Acute myocardial infarction, unspecified; N18.9 Chronic kidney disease, unspecified
CPT/HCPCS: 80053; 80061; 84443; 85025

== ENCOUNTER 2023-02-14 13:41 | Emergency (ER) | payer MEDICARE, OTHER ==
[~2023-02-14] VITALS: Ht 160 cm; Wt 86.6 kg
[2023-02-14 14:39] LABS: BASOPHILS ABSOLUTE AUTO 0.06 K/mm3 (0.00-0.23); BASOPHILS PERCENT AUTO 1 % (0-2); EOSINOPHILS ABSOLUTE AUTO 0.09 K/mm3 (0.00-0.68); EOSINOPHILS PERCENT AUTO 1 % (0-6); Hematocrit 40.7 % (33.0-51.0); Hemoglobin 13.6 g/dL (11.5-16.0); IMMATURE GRAN ABSOLUTE AUTO 0.04 K/mm3 (0.00-0.10); IMMATURE GRAN PERCENT AUTO 1 % (0-1); LYMPHOCYTES ABSOLUTE AUTO 2.07 K/mm3 (0.84-5.20); LYMPHOCYTES PERCENT AUTO 29 % (21-46); MONOCYTES ABSOLUTE AUTO 0.37 K/mm3 (0.16-1.47); MONOCYTES PERCENT AUTO 5 % (4-13); Mean Corpuscular HGB Conc 33.4 g/dL (31.5-36.5); Mean Corpuscular Volume 90 fL (80-100); Mean Platelet Volume 9.3 fL (9.1-12.4); NEUTROPHILS ABSOLUTE AUTO 4.63 K/mm3 (1.96-9.15); NEUTROPHILS PERCENT AUTO 64 % (41-73); Platelet Count 251 K/mm3 (150-400); RDW Coefficient Variation 13.5 % (11.7-14.2); RDW Standard Deviation 44.5 fL (35.1-46.3); Red Blood Cell Count 4.53 M/mm3 (3.80-5.20); White Blood Cell Count 7.26 K/mm3 (4.00-11.30)
[2023-02-14 14:56] LABS: Albumin, Blood 3.7 g/dL (3.4-5.0); Albumin/Globulin Ratio 0.9 (0.8-1.8); Bilirubin, Total 0.4 mg/dL (0.1-1.0); Bun/Creatinine Ratio 15.7 (12.0-20.0); Creatinine, Blood 0.7 mg/dL (0.40-1.00); Globulin, Blood 4.1 g/dL (2.2-4.0); Total Protein, Blood 7.8 g/dL (6.4-8.2)
[2023-02-14 18:35] VITALS: BP 128/63
== END 2023-02-14 21:10 | disposition home or self-care (01) ==
LOC: ER 13:41
PROVIDERS: Physician Assistant
DX: R59.0 Localized enlarged lymph nodes (principal); I25.10 Atherosclerotic heart disease of native coronary artery without angina pectoris; I25.2 Old myocardial infarction; I10 Essential (primary) hypertension; J44.9 Chronic obstructive pulmonary disease, unspecified; F17.210 Nicotine dependence, cigarettes, uncomplicated; Z79.82 Long term (current) use of aspirin; Z79.899 Other long term (current) drug therapy; Z88.5 Allergy status to narcotic agent; Z88.1 Allergy status to other antibiotic agents
CPT/HCPCS: 70491; 71045; 80053; 85025; 99284-25; Q9967